=== PATIENT | female | born 1960 | race Caucasian/White ===

== ENCOUNTER → 2016-10-21 | Outpatient (CLI) | payer SELFPAY | LOC: YCFC.O 11:28 | PROVIDERS: ATTEND Nurse Practitioner Family | DX: I10 Essential (primary) hypertension (principal); F41.8 Other specified anxiety disorders; Z68.35 Body mass index [BMI] 35.0-35.9, adult; Z13.220 Encounter for screening for lipoid disorders ==

== ENCOUNTER → 2020-04-25 | Outpatient (CLI) | payer OTHER | LOC: YCFC.O 10:34 | PROVIDERS: ATTEND Family Medicine | DX: J32.9 Chronic sinusitis, unspecified (principal); Z11.59 Encounter for screening for other viral diseases ==

== ENCOUNTER → 2020-05-08 | Outpatient (CLI) | payer SELFPAY | LOC: YCFC.O 10:39 | PROVIDERS: ATTEND Family Medicine | DX: I10 Essential (primary) hypertension (principal) ==